=== PATIENT | female | born 1975 | race Caucasian/White ===

== ENCOUNTER 2023-05-21 06:23 | Day surgery (SDC) | payer OTHER ==
[2023-05-16 11:46] VITALS: BMI 41.0
[2023-05-21] MEDS ORDERED: LACTATED RINGERS 1,000 ML IV SCH (06:39)
[2023-05-21 07:06] VITALS: RESP 16; TEMP 97.6
[2023-05-21 07:08] LABS: Glucose,Whole Blood 156 mg/dL (70-110)
[2023-05-21] MEDS ORDERED: PROPOFOL 10 MG/ML 20 ML VIAL IV ONE (07:26)
[2023-05-21] MEDS ORDERED: MIDAZOLAM 2 MG/2 ML VIAL ONE (07:26)
[2023-05-21] MEDS ORDERED: fentaNYL (PF) 50 MCG/ML 2 ML AMP ONE (07:26)
[2023-05-21] MEDS ORDERED: LIDOCAINE 1% INJ 10MG/ML (20 ML MDV) ONE (07:26)
--- NOTE | 2023-05-21 07:57 | P.PCN ---
Date of Procedure: 05/21/23 Procedure(s) Performed: Brief history: Patient is a pleasant 47-year-old white female scheduled for an elective upper endoscopy as well as colonoscopy as a part of evaluation of epigastric pain for the last 6 weeks duration. Also has noted change in bowel habits with intermittent diarrhea but no rectal bleeding. Procedure performed: Esophagogastroduodenoscopy biopsy Colonoscopy with biopsy Preoperative diagnosis: Chronic epigastric pain Change in bowel habits Anesthesia: MAC Procedure: After informed consent was obtained from the patient was brought into the endoscopy unit and IV sedation was administered by anesthesia under continuous monitoring. Initially upper endoscopy was done. The Olympus GF 160 video endoscope was inserted inserted into the mouth and esophagus intubated without any difficulty and was gradually advanced into the stomach and duodenum and carefully examined. The bulb and second part of the duodenum appeared normal. Biopsies were done from the duodenum to rule out celiac disease. The scope was then withdrawn into the stomach adequately insufflated with air and upon careful examination the antrum had mild gastritis and biopsies were done from this area. Mucosa of the body, cardia and fundus appeared normal. The scope was then withdrawn into the esophagus. The GE junction was located at 40 cm to the incisors. It appeared regular with no erythema erosions or ulcerations. Rest of the esophagus appeared normal. Patient tolerated the procedure well. At this time the patient continued to remain sedation. Initial digital rectal examination was normal. Olympus CF 160 video colonoscope was then inserted into the rectum and gradually advanced to the cecum without any difficulty. Careful examination was performed as the scope was gradually being withdrawn. The prep was excellent. The cecum, ascending colon, transverse colon, descending colon, appeared normal. In the sigmoid: There was a 4 mm polyp that was removed by cold biopsy. In the distal rectum was a 5 mm polyp that was removed by cold biopsy. Rest of the sigmoid colon and rectum appeared normal. Retroflexion was performed in the rectum and no lesions were noted. Patient tolerated the procedure well. Impression: 1. Upper endoscopy revealed mild antral gastritis and irregular GE junction but no evidence of esophagitis or peptic ulcer disease 2. Colonoscopy revealed a 4 mm; polyp and a 5 mm distal rectal polyp status post removal by cold biopsy. Recommendations. Findings of this examination were discussed with the patient as well as her family. She was advised to follow with the biopsy results. If the biopsy the colon polyp reveals adenoma she can have a repeat coloscopy in 5 years. In regards to the chronic epigastric pain she can continue with Carafate 1 g twice daily and use [id number] Pepcid for possible reflux symptoms.
[2023-05-21 08:06] LABS: Glucose,Whole Blood 156 mg/dL (70-110)
[2023-05-21 08:33] VITALS: BP 128/79; PULSE 83
== END 2023-05-21 08:33 | disposition home or self-care (01) ==
LOC: ORWHC2ENDO 06:23
PROVIDERS: ATTEND Internal Medicine Gastroenterology
DX: K29.50 Unspecified chronic gastritis without bleeding (principal); K62.1 Rectal polyp; G89.29 Other chronic pain; D72.10 Eosinophilia, unspecified; I10 Essential (primary) hypertension; E11.9 Type 2 diabetes mellitus without complications; K76.0 Fatty (change of) liver, not elsewhere classified; K21.9 Gastro-esophageal reflux disease without esophagitis; F41.9 Anxiety disorder, unspecified; Z79.84 Long term (current) use of oral hypoglycemic drugs; Z79.899 Other long term (current) drug therapy
CPT/HCPCS: 81025; 88305; 45380; 43239; J2250; J2001; J3010; J2704